=== PATIENT | female | born 1940 | race Asian ===

== ENCOUNTER 2025-03-26 12:03 | Outpatient (CLI) | payer OTHER, SELFPAY ==
--- NOTE | ~2025-03-26 | DEXA_ITS ---
Bone Density Report Name: SAIGE PRETTY Age: 85 Sex: Female Ethnicity: White Date of : 1940 Indication: postmenopausal; screening for osteoporosis; Referring Provider: SUKHWINDER, [facility] Study: Bone densitometry was performed. Exam Date: March 26, 2025 Accession number: [id number] Bone Density: Region BMD T-score Z-score Classification AP Spine(L1-L4) 0.615 -3.9 -1.1 Osteoporosis Femoral Neck (Left) 0.498 -3.2 -0.7 Osteoporosis Total Hip (Left) 0.530 -3.4 -1.1 Osteoporosis Femoral Neck (Right) 0.456 -3.5 -1.1 Osteoporosis Total Hip (Right) 0.501 -3.6 -1.3 Osteoporosis Femoral Neck Mean 0.477 -3.4 -0.9 Osteoporosis Total Hip Mean 0.516 -3.5 -1.2 Osteoporosis World Health Organization criteria for BMD impression classify patients as: Normal (T-score at or above -1.0), Osteopenia (T-score between -1.0 and -2.5), or Osteoporosis (T-score at or below -2.5). 10-year Fracture Risk: FRAX not reported because: Some T-score for Spine Total or Hip Total or Femoral Neck at or below -2.5 Clinical Information Provided by Patient: Patient maximum height was 51 Menopause Age: 46 No regular weight bearing exercise Onset of menses at age 17 Number of children 6 Impression: The patient has osteoporosis, based on the Total Spine T-score. Discussion: INCREASED RISK OF FRACTURE. BONE DENSITY IS UNDESIRABLY LOW AT ONE OR MORE SKELETAL SITES, CONSISTENT WITH POSTMENOPAUSAL OSTEOPOROSIS. This patient's lowest T-score meets the World Health Organization's (WHO) criteria for osteoporosis at one or more sites (T-score -2.5 or below). In untreated patients, the risk of osteoporotic fracture increases approximately two-fold for each 1.0 SD decrease in T-score. Low bone density is not the only risk factor for fracture; also consider factors such as patient's age, frailty or poor health, risk of falling, risk of injury, previous osteoporotic fracture, family history of osteoporosis, cigarette smoking, low body weight, etc. Not everyone with low bone mineral density has osteoporosis; osteomalacia and other metabolic bone disorders should also be considered. Patients who have osteoporosis should be evaluated for specific diseases and conditions (secondary causes) that may cause or contribute to bone loss. The [place] [employer] (AACE) and National Osteoporosis Foundation (NOF) recommend pharmacologic intervention for all postmenopausal women whose T-score is in this range. The patient should follow a healthful lifestyle (good nutrition with adequate calcium and vitamin D, and appropriate weight-bearing exercise). Follow-Up: Consider a repeat BMD and Vertebral Fracture Assessment (VFA) exam in 2 years or sooner if medically necessary, to reassess this patient's status. Reported by: ROSA on 03/26/2025 12:50:00 PM. Reviewed, dictated and finalized at location A.
== END 2025-03-26 12:04 | disposition home or self-care (01) ==
LOC: CHSIMG 12:07
PROVIDERS: PCP Family Medicine; Visit Provider Family Medicine
DX: Z78.0 Asymptomatic menopausal state (principal); M81.0 Age-related osteoporosis without current pathological fracture
CPT/HCPCS: 77080